=== PATIENT | female | born 1990 | race Caucasian/White ===

== ENCOUNTER 2016-06-23 15:10 | Emergency (ER) | payer OTHER ==
[~2016-06-23] VITALS: Ht 162.6 cm; Wt 107.6 kg
[~2016-06-23 15:10] MED LIST: ALBUTEROL2.5 MG/3 M IH; ALLEGRA ALLERG180 MG PO; AMARYL2 MG PO; AMOXICILLI400 MG/5 M PO; ATORVASTATIN CA20 MG PO; BACLOFEN10 MG PO; BENTYL10 MG PO; BENTYL20 MG PO; BUSPIRONE HCL30 MG PO; CEFDINIR300 MG PO; CIPRO500 MG PO; CIPROFLOXACIN250 MG PO; CLARITIN10 M3 PO; CLINDAMYCIN HC300 MG PO; DEPO-PROVER150 MG/ML IM; DESYREL 150 MG150 MG PO; DESYREL100 MG PO; DESYREL300 MG PO; DICLOFENAC SODI75 MG PO; ELAVIL50 MG PO; ERGOCALCIF50000 UNIT PO; FEXOFENADINE H180 MG PO; FLAGYL500 MG PO; FLINTSTONES M300 MCG PO; FLUCONAZOLE150 MG PO; FOLIC ACID1 MG PO; GEMFIBROZIL600 MG PO; GLIPIZIDE5 MG PO; GLUCOPHAGE XR,500 MG PO; GLUCOPHAGE500 MG PO; GLUMETZA500 M1 PO; GLYBURIDE1.25 MG PO; GUAIFENESIN WI120 ML PO; HYDROCODON-ACE1 EAC7 PO; HYDROXYZINE HCL25 MG PO; INDERAL10 MG PO; KEFLEX500 MG PO; KENALOG,ARISTOC15 G2 TP; LAMICTAL ODT50 MG PO; LAMICTAL100 MG PO; LANTUS 10100 UNITS/ SC; LATUDA20 MG PO; LORTAB 5-325 M1 EACH PO; LYRICA225 MG PO; LYRICA75 MG PO; MACROBID100 MG PO; MACRODANTIN100 MG PO; METFORMIN HCL500 M1 PO; METOPROLOL TART25 MG PO; MILK OF MAGN PO; MOTRIN600 MG PO; MOTRIN800 MG PO; MULTIVITAMINS; NAPROSYN500 MG PO; NORCO 7.5/321 TABLET PO; NOVOLOG 10100 UNITS/ SC; PERCOCET 5/31 TABLET PO; PREDNISONE20 MG PO; PRENATAL PLUS1 EAC3 PO; PROVERA,CYCRIN10 MG PO; RANITIDINE HCL300 MG PO; REMERON30 M2 PO; REQUIP2 MG PO; ROPINIROLE HCL2 MG PO; SEA-OMEGA 30 C1 EACH PO; TAMIFLU75 MG PO; THIAMINE HCL500 MG PO; TORADOL10 MG PO; TRAMADOL HCL50 MG PO; TRAZODONE HCL150 MG PO; TRILEPTAL300 MG PO; TRILEPTAL600 MG PO; ULTRAM50 MG PO; VICODIN 5-3001 EACH PO; VITAMIN B-12250 MCG PO; VITAMIN D31000 UNI1 PO; VITAMIN D31000 UNIT PO; VOLTAREN75 MG PO; WELLBUTRIN XL150 MG PO; ZANTAC150 MG PO; ZANTAC300 MG PO; ZOFRAN ODT4 MG PO; ZOFRAN4 MG PO; [UNRECOGNIZED DRUG - OTHER] TP; vitamin d3 PO
[2016-06-23] MEDS ORDERED: ATARAX,VISTARIL50 MG PO (16:07)
[2016-06-23] MEDS ORDERED: PREDNISONE10 MG PO (16:07)
[2016-06-23 16:09] VITALS: BP 116/91
== END 2016-06-23 16:15 | disposition home or self-care (01) ==
LOC: EME 15:10
DX: T78.40XA Allergy, unspecified, initial encounter (principal); L29.9 Pruritus, unspecified
CPT/HCPCS: 99281; 99284

== ENCOUNTER 2016-07-11 19:33 | Emergency (ER) | payer OTHER ==
[~2016-07-11] VITALS: Ht 160 cm; Wt 109.3 kg
[~2016-07-11 19:33] MED LIST changes: +ATARAX,VISTARIL50 MG PO; +PREDNISONE10 MG PO
[2016-07-11 20:34] LABS: HEMATOCRIT 43.1 % (36.0-46.0); MCH 29.3 PG (29.0-34.0); MCV 83.5 FL (83-99); MEAN PLAT.VOLUME 9.2 uM^3 (9.5-12.4); PLATELET COUNT 377 K/uL (156-360); RBC DIS.WIDTH-CV 13.7 % (11.8-14.6); RBC DIS.WIDTH-SD 41.1 % (39-53); RED BLOOD COUNT 5.16 M/uL (3.80-5.20); WHITE BLOOD COUNT 13.3 K/uL (4.1-10.2)
[2016-07-11 20:40] LABS: CHLORIDE 102 mEq/L (99-109); POTASSIUM 3.8 mEq/L (3.7-5.4); SODIUM 137 mEq/L (136-147)
[2016-07-11 20:42] LABS: GLUCOSE 203 mg/dL (70-99)
[2016-07-11 20:44] LABS: ANION GAP 14 MEQ/L (2-14)
[2016-07-11 20:46] LABS: GFR ESTIMATE (CALCULATED) > 59 mL/min/
[2016-07-11 20:47] LABS: UREA NITROGEN (BUN) 8 mg/dL (9-23)
[2016-07-11 20:53] LABS: TROP-I INTERPRETATION NEGATIVE; TROPONIN-I < 0.01 ng/mL (0.0-0.30)
[2016-07-11 22:10] LABS: BILIRUBIN NEGATIVE; BLOOD NEGATIVE; COLOR YELLOW ((YELLOW)); GLUCOSE (STRIP) NEGATIVE; KETONES NEGATIVE; LEUKOCYTES NEGATIVE; NITRITE NEGATIVE; PROTEIN (STRIP) NEGATIVE; SPECIFIC GRAVITY 1.014 (1.000-1.030); UROBILINOGEN 0.2 MG/DL (0.2-1.0)
[2016-07-11] MEDS ORDERED: NADOLOL20 MG PO ×2 (22:10→23:29)
[2016-07-11 22:20] LABS: ADD MIUA? NO; UCUL ADDED? NO
[2016-07-11 22:40] VITALS: BP 126/80
== END 2016-07-11 22:41 | disposition home or self-care (01) ==
LOC: EME 19:33
PROVIDERS: Physician Assistant
DX: R00.0 Tachycardia, unspecified (principal); R07.9 Chest pain, unspecified; E11.65 Type 2 diabetes mellitus with hyperglycemia; Z79.4 Long term (current) use of insulin; F31.9 Bipolar disorder, unspecified; G89.29 Other chronic pain; G43.909 Migraine, unspecified, not intractable, without status migrainosus; K21.9 Gastro-esophageal reflux disease without esophagitis; E66.9 Obesity, unspecified; J45.909 Unspecified asthma, uncomplicated
CPT/HCPCS: 71020; 80048; 81003; 82010; 84484; 85027; 93005; 99281; 99284

== ENCOUNTER 2016-08-22 18:16 | Emergency (ER) | payer OTHER ==
[~2016-08-22] VITALS: Ht 162.6 cm; Wt 108.0 kg
[~2016-08-22 18:16] MED LIST changes: +NADOLOL20 MG PO
[2016-08-22 21:00] LABS: HEMATOCRIT 45.6 % (36.0-46.0); MCH 29.7 PG (29.0-34.0); MCHC 35.1 G/DL (30.0-36.0); MCV 84.8 FL (83-99); MEAN PLAT.VOLUME 9.8 uM^3 (9.5-12.4); PLATELET COUNT 338 K/uL (156-360); RBC DIS.WIDTH-CV 14.4 % (11.8-14.6); RBC DIS.WIDTH-SD 43.8 % (39-53); RED BLOOD COUNT 5.38 M/uL (3.80-5.20); WHITE BLOOD COUNT 13.6 K/uL (4.1-10.2)
[2016-08-22 21:15] LABS: CHLORIDE 103 mEq/L (99-109); POTASSIUM 4.2 mEq/L (3.7-5.4); SODIUM 134 mEq/L (136-147)
[2016-08-22 21:17] LABS: GLUCOSE 180 mg/dL (70-99)
[2016-08-22 21:18] LABS: ANION GAP 9 MEQ/L (2-14)
[2016-08-22 21:20] LABS: SERUM ETHYL ALCOHOL < 10 mg/dL
[2016-08-22 21:21] LABS: GFR ESTIMATE (CALCULATED) > 59 mL/min/
[2016-08-22 21:22] LABS: UREA NITROGEN (BUN) 8 mg/dL (9-23)
[2016-08-22 21:30] LABS: QUANTITATIVE HCG < 4.0 MIU/ML
[2016-08-22 21:37] LABS: ADD MEDTOX COMMENT Y; AMPHETAMINE NEGATIVE (500 ng/mL); BARBITURATES NEGATIVE (200 ng/mL); BENZODIAZEPINES PRESUMPTIVE POSITIVE (150 ng/mL); COCAINE NEGATIVE (150 ng/mL); INTERNAL CONTROLS VALID? YES; METHADONE NEGATIVE (200 ng/mL); METHAMPHETAMINE NEGATIVE (500 ng/mL); OPIATES (MORPHINE) NEGATIVE (100 ng/mL); OXYCODONE NEGATIVE (100 ng/mL); PHENCYCLIDINE NEGATIVE (25 ng/mL); PROPOXYPHENE NEGATIVE (300 ng/mL); THC CANNABINOIDS NEGATIVE (50 ng/mL); TRICYCLIC ANTIDEPRESSANTS NEGATIVE (300 ng/mL)
[2016-08-22 22:55] LABS: BENZODIAZEPINES QUANT VALUE 0 NG/ML; BENZODIAZEPINES, URINE SCREEN Negative (200 ng/mL)
[2016-08-22 23:13] VITALS: BP 126/89
== END 2016-08-22 23:15 | disposition home or self-care (01) ==
LOC: EME 18:16
DX: F32.9 Major depressive disorder, single episode, unspecified (principal); F60.9 Personality disorder, unspecified; J45.909 Unspecified asthma, uncomplicated; F31.9 Bipolar disorder, unspecified; E11.9 Type 2 diabetes mellitus without complications; K21.9 Gastro-esophageal reflux disease without esophagitis; Z79.4 Long term (current) use of insulin
CPT/HCPCS: 80048; 84702; 84999; 85027; 90839; 99281; 99285; G0480

== ENCOUNTER 2016-10-09 16:50 | Emergency (ER) | payer OTHER ==
[~2016-10-09] VITALS: Ht 162.6 cm; Wt 107.2 kg
[2016-10-09] MEDS ORDERED: PERCOCET 5/31 TABLET PO (20:41)
[2016-10-09 21:24] VITALS: BP 125/88
== END 2016-10-09 21:25 | disposition home or self-care (01) ==
LOC: EME 16:50
PROC: 2W3RX1Z Immobilization of Left Lower Leg using Splint (ICD-10-PCS; principal; 2016-10-09)
DX: S92.325A Nondisplaced fracture of second metatarsal bone, left foot, initial encounter for closed fracture (principal); S92.335A Nondisplaced fracture of third metatarsal bone, left foot, initial encounter for closed fracture; S92.345A Nondisplaced fracture of fourth metatarsal bone, left foot, initial encounter for closed fracture; S92.355A Nondisplaced fracture of fifth metatarsal bone, left foot, initial encounter for closed fracture; W01.198A Fall on same level from slipping, tripping and stumbling with subsequent striking against other object, initial encounter
CPT/HCPCS: 73630; 99281; 99284

== ENCOUNTER 2016-11-06 03:32 | Emergency (ER) | payer OTHER ==
[~2016-11-06] VITALS: Ht 162.6 cm; Wt 109.5 kg
[2016-11-06 03:52] LABS: POINT-OF-CARE METER ID UU13113778
[2016-11-06 04:04] LABS: BASOPHIL COUNT 0.1 K/uL (0-0.1); EOSINOPHIL (%) 2.5 % (0-5); EOSINOPHIL COUNT 0.2 K/uL (0-0.3); HEMATOCRIT 42.4 % (36.0-46.0); IMMATURE GRANULOCYTE (%) 0.6 % (0.0-0.7); IMMATURE GRANULOCYTE COUNT 0.1 K/uL; INSTRUMENT ABS NEUTROPHIL CT 4.2 K/uL; LYMPHOCYTE COUNT 2.5 K/uL (1.0-2.8); MCH 30.5 PG (29.0-34.0); MCHC 35.1 G/DL (30.0-36.0); MCV 86.9 FL (83-99); MEAN PLAT.VOLUME 9.8 uM^3 (9.5-12.4); MONOCYTE (%) 11.3 % (3-12); MONOCYTE COUNT 0.9 K/uL (0-0.8); NEUTROPHIL (%) 53.6 % (45-76); NEUTROPHIL COUNT 4.2 K/uL (1.8-6.4); PLATELET COUNT 324 K/uL (156-360); RBC DIS.WIDTH-CV 14.3 % (11.8-14.6); RBC DIS.WIDTH-SD 44.6 % (39-53); RED BLOOD COUNT 4.88 M/uL (3.80-5.20); WHITE BLOOD COUNT 7.9 K/uL (4.1-10.2)
[2016-11-06 04:15] LABS: CHLORIDE 103 mEq/L (99-109); SODIUM 134 mEq/L (136-147)
[2016-11-06 04:18] LABS: GLUCOSE 432 mg/dL (70-99)
[2016-11-06 04:19] LABS: ANION GAP 17 MEQ/L (2-14); TOTAL BILIRUBIN 0.3 mg/dL (0.0-1.0)
[2016-11-06 04:21] LABS: ALKALINE PHOSPHATASE 71 IU/L (3-129); GFR ESTIMATE (CALCULATED) > 59 mL/min/
[2016-11-06 04:22] LABS: UREA NITROGEN (BUN) 6 mg/dL (9-23)
[2016-11-06 04:23] LABS: DIRECT BILIRUBIN < 0.1 mg/dL (0.0-0.3)
[2016-11-06 04:25] LABS: LIPASE 26 U/L (1.0-51.0)
[2016-11-06 04:37] LABS: ADD MIUA? NO; BILIRUBIN NEGATIVE; BLOOD NEGATIVE; COLOR STRAW ((YELLOW)); GLUCOSE (STRIP) >=500; KETONES NEGATIVE; LEUKOCYTES NEGATIVE; NITRITE NEGATIVE; PROTEIN (STRIP) NEGATIVE; SPECIFIC GRAVITY 1.032 (1.000-1.030); UCUL ADDED? NO; UROBILINOGEN 0.2 MG/DL (0.2-1.0)
[2016-11-06 04:50] VITALS: BP 137/107
[2016-11-06 04:51] LABS: POINT-OF-CARE METER ID UU13113702
[2016-11-06 04:56] LABS: ADD MEDTOX COMMENT Y; AMPHETAMINE NEGATIVE (500 ng/mL); BARBITURATES NEGATIVE (200 ng/mL); BENZODIAZEPINES NEGATIVE (150 ng/mL); COCAINE NEGATIVE (150 ng/mL); INTERNAL CONTROLS VALID? YES; METHADONE NEGATIVE (200 ng/mL); METHAMPHETAMINE NEGATIVE (500 ng/mL); OPIATES (MORPHINE) PRESUMPTIVE POSITIVE (100 ng/mL); OXYCODONE PRESUMPTIVE POSITIVE (100 ng/mL); PHENCYCLIDINE NEGATIVE (25 ng/mL); PROPOXYPHENE NEGATIVE (300 ng/mL); THC CANNABINOIDS NEGATIVE (50 ng/mL); TRICYCLIC ANTIDEPRESSANTS NEGATIVE (300 ng/mL)
== END 2016-11-06 04:52 | disposition home or self-care (01) ==
LOC: EME 03:32
PROVIDERS: Emergency Medicine
DX: E11.65 Type 2 diabetes mellitus with hyperglycemia (principal); Z79.4 Long term (current) use of insulin; Z96.41 Presence of insulin pump (external) (internal); J45.909 Unspecified asthma, uncomplicated; E66.9 Obesity, unspecified; Z68.41 Body mass index [BMI] 40.0-44.9, adult; Z90.49 Acquired absence of other specified parts of digestive tract
CPT/HCPCS: 80048; 80076; 81003; 82803; 82948; 83690; 84999; 85025; 99281; 99284; J7030

== ENCOUNTER 2016-12-07 23:13 | Emergency (ER) | payer OTHER ==
[~2016-12-07] VITALS: Ht 154.9 cm; Wt 108.9 kg
[2016-12-07 23:40] LABS: HEMATOCRIT 47.5 % (36.0-46.0); MCHC 34.9 G/DL (30.0-36.0); MCV 85.7 FL (83-99); MEAN PLAT.VOLUME 9.3 uM^3 (9.5-12.4); PLATELET COUNT 364 K/uL (156-360); RBC DIS.WIDTH-CV 13.8 % (11.8-14.6); RBC DIS.WIDTH-SD 42.6 % (39-53); RED BLOOD COUNT 5.54 M/uL (3.80-5.20); WHITE BLOOD COUNT 13.6 K/uL (4.1-10.2)
[2016-12-07 23:49] LABS: CHLORIDE 100 mEq/L (99-109); SODIUM 134 mEq/L (136-147)
[2016-12-07 23:51] LABS: GLUCOSE 309 mg/dL (70-99)
[2016-12-07 23:52] LABS: ANION GAP 15 MEQ/L (2-14)
[2016-12-07 23:55] LABS: GFR ESTIMATE (CALCULATED) > 59 mL/min/; UREA NITROGEN (BUN) 5 mg/dL (9-23)
[2016-12-08] MEDS ORDERED: SINGULAIR10 MG PO (00:33)
[2016-12-08] MEDS ORDERED: FLONASE16 G1 BOTH NARES (00:33)
[2016-12-08 01:02] VITALS: BP 135/90
== END 2016-12-08 01:04 | disposition home or self-care (01) ==
LOC: EME 23:13
DX: J30.2 Other seasonal allergic rhinitis (principal); E11.9 Type 2 diabetes mellitus without complications; Z79.4 Long term (current) use of insulin; E66.9 Obesity, unspecified; Z68.42 Body mass index [BMI] 45.0-49.9, adult; Z88.1 Allergy status to other antibiotic agents
CPT/HCPCS: 71020; 80048; 85027; 99281; 99283

== ENCOUNTER 2016-12-15 15:36 | Emergency (ER) | payer OTHER ==
[~2016-12-15] VITALS: Ht 162.6 cm; Wt 109.8 kg
[~2016-12-15 15:36] MED LIST changes: +FLONASE16 G1 BOTH NARES; +SINGULAIR10 MG PO
[2016-12-15 16:10] LABS: HEMATOCRIT 44.8 % (36.0-46.0); MCH 29.9 PG (29.0-34.0); MCHC 35.5 G/DL (30.0-36.0); MCV 84.4 FL (83-99); MEAN PLAT.VOLUME 9.2 uM^3 (9.5-12.4); PLATELET COUNT 331 K/uL (156-360); RBC DIS.WIDTH-CV 13.2 % (11.8-14.6); RBC DIS.WIDTH-SD 40.5 % (39-53); RED BLOOD COUNT 5.31 M/uL (3.80-5.20); WHITE BLOOD COUNT 11.7 K/uL (4.1-10.2)
[2016-12-15 16:21] LABS: CHLORIDE 98 mEq/L (99-109); SODIUM 134 mEq/L (136-147)
[2016-12-15 16:23] LABS: GLUCOSE 227 mg/dL (70-99)
[2016-12-15 16:24] LABS: ANION GAP 14 MEQ/L (2-14)
[2016-12-15 16:25] LABS: TOTAL BILIRUBIN 0.4 mg/dL (0.0-1.0)
[2016-12-15 16:26] LABS: ALKALINE PHOSPHATASE 80 IU/L (3-129)
[2016-12-15 16:27] LABS: GFR ESTIMATE (CALCULATED) > 59 mL/min/
[2016-12-15 16:28] LABS: UREA NITROGEN (BUN) 6 mg/dL (9-23)
[2016-12-15 16:30] LABS: LIPASE 15 U/L (1.0-51.0)
[2016-12-15 16:36] LABS: QUANTITATIVE HCG < 4.0 MIU/ML
[2016-12-15 16:38] LABS: ADD MIUA? YES; BILIRUBIN NEGATIVE; BLOOD LARGE; COLOR YELLOW ((YELLOW)); GLUCOSE (STRIP) 150; KETONES NEGATIVE; LEUKOCYTES NEGATIVE; NITRITE NEGATIVE; PROTEIN (STRIP) 100; SPECIFIC GRAVITY 1.021 (1.000-1.030); UROBILINOGEN 0.2 MG/DL (0.2-1.0)
[2016-12-15 17:01] LABS: BACTERIA NONE SEEN /HPF; CASTS NONE SEEN /LPF; CRYSTALS NONE SEEN; EPITHELIAL CELLS RARE /HPF; MUCUS NONE SEEN /LPF; RED BLOOD CELLS TNTC /HPF (0-5); UCUL ADDED? YES; WHITE BLOOD CELLS RARE /HPF (0-5)
[2016-12-15] MEDS ORDERED: NAPROXEN500 MG PO (18:57)
[2016-12-15 19:06] VITALS: BP 139/116
== END 2016-12-15 19:07 | disposition home or self-care (01) ==
LOC: EME 15:36
PROVIDERS: Physician Assistant Medical
DX: R10.2 Pelvic and perineal pain (principal); J45.909 Unspecified asthma, uncomplicated; E11.9 Type 2 diabetes mellitus without complications; K21.9 Gastro-esophageal reflux disease without esophagitis; E66.9 Obesity, unspecified; Z68.41 Body mass index [BMI] 40.0-44.9, adult; F90.9 Attention-deficit hyperactivity disorder, unspecified type; F32.9 Major depressive disorder, single episode, unspecified; Z79.4 Long term (current) use of insulin; Z90.49 Acquired absence of other specified parts of digestive tract; Z88.0 Allergy status to penicillin
CPT/HCPCS: 76856; 80053; 81003; 83690; 84702; 85027; 87086; 99281; 99283; J1885

== ENCOUNTER 2017-01-03 18:18 | Emergency (ER) | payer OTHER ==
[~2017-01-03] VITALS: Ht 162.6 cm; Wt 111.0 kg
[~2017-01-03 18:18] MED LIST changes: +NAPROXEN500 MG PO
[2017-01-03] MEDS ORDERED: NAPROXEN500 MG PO (21:17)
[2017-01-03 21:29] VITALS: BP 142/88
== END 2017-01-03 21:31 | disposition home or self-care (01) ==
LOC: EME 18:18
DX: S93.602A Unspecified sprain of left foot, initial encounter (principal); W10.9XXA Fall (on) (from) unspecified stairs and steps, initial encounter; E11.9 Type 2 diabetes mellitus without complications; Z79.4 Long term (current) use of insulin; J45.909 Unspecified asthma, uncomplicated; E66.9 Obesity, unspecified; Z68.41 Body mass index [BMI] 40.0-44.9, adult
CPT/HCPCS: 73630; 73700; 99281; 99284; J1885

== ENCOUNTER 2017-01-24 11:11 | Emergency (ER) | payer OTHER ==
[~2017-01-24] VITALS: Ht 162.6 cm; Wt 113.2 kg
[2017-01-24 12:16] LABS: HEMATOCRIT 43.6 % (36.0-46.0); MCH 29.9 PG (29.0-34.0); MCHC 35.1 G/DL (30.0-36.0); MCV 85.2 FL (83-99); MEAN PLAT.VOLUME 9.4 uM^3 (9.5-12.4); PLATELET COUNT 314 K/uL (156-360); RBC DIS.WIDTH-CV 13.6 % (11.8-14.6); RBC DIS.WIDTH-SD 42.4 % (39-53); RED BLOOD COUNT 5.12 M/uL (3.80-5.20); WHITE BLOOD COUNT 9.9 K/uL (4.1-10.2)
[2017-01-24 12:28] LABS: CHLORIDE 101 mEq/L (99-109); POTASSIUM 3.9 mEq/L (3.7-5.4); SODIUM 136 mEq/L (136-147)
[2017-01-24 12:29] LABS: GLUCOSE 161 mg/dL (70-99)
[2017-01-24 12:31] LABS: ANION GAP 13 MEQ/L (2-14)
[2017-01-24 12:33] LABS: GFR ESTIMATE (CALCULATED) > 59 mL/min/
[2017-01-24 12:34] LABS: UREA NITROGEN (BUN) 5 mg/dL (9-23)
[2017-01-24 12:38] LABS: TROP-I INTERPRETATION NEGATIVE; TROPONIN-I < 0.01 ng/mL (0.0-0.30)
[2017-01-24 13:53] VITALS: BP 149/94
== END 2017-01-24 13:53 | disposition home or self-care (01) ==
LOC: EME 11:11
DX: R07.9 Chest pain, unspecified (principal); E11.9 Type 2 diabetes mellitus without complications; Z79.4 Long term (current) use of insulin; J45.909 Unspecified asthma, uncomplicated; E66.9 Obesity, unspecified; Z68.41 Body mass index [BMI] 40.0-44.9, adult
CPT/HCPCS: 71020; 80048; 84484; 85027; 93005; 99281; 99283; J1885

== ENCOUNTER 2017-02-06 18:38 | Emergency (ER) | payer OTHER ==
[~2017-02-06] VITALS: Ht 162.6 cm; Wt 111.5 kg
[2017-02-06 19:14] LABS: MCHC 35.5 G/DL (30.0-36.0); MCV 84.4 FL (83-99); MEAN PLAT.VOLUME 9.6 uM^3 (9.5-12.4); PLATELET COUNT 355 K/uL (156-360); RBC DIS.WIDTH-CV 13.7 % (11.8-14.6); RED BLOOD COUNT 5.57 M/uL (3.80-5.20); WHITE BLOOD COUNT 12.2 K/uL (4.1-10.2)
[2017-02-06 19:23] LABS: CHLORIDE 97 mEq/L (99-109); POTASSIUM 3.7 mEq/L (3.7-5.4); SODIUM 136 mEq/L (136-147)
[2017-02-06 19:25] LABS: GLUCOSE 381 mg/dL (70-99)
[2017-02-06 19:26] LABS: ANION GAP 17 MEQ/L (2-14)
[2017-02-06 19:27] LABS: TOTAL BILIRUBIN 0.4 mg/dL (0.0-1.0)
[2017-02-06 19:29] LABS: ALKALINE PHOSPHATASE 104 IU/L (3-129); GFR ESTIMATE (CALCULATED) > 59 mL/min/
[2017-02-06 19:30] LABS: UREA NITROGEN (BUN) 7 mg/dL (9-23)
[2017-02-06 19:36] LABS: ADD MIUA? YES; BILIRUBIN NEGATIVE; BLOOD LARGE; GLUCOSE (STRIP) >=500; KETONES 5; LEUKOCYTES NEGATIVE; NITRITE NEGATIVE; PROTEIN (STRIP) >=500; SPECIFIC GRAVITY 1.033 (1.000-1.030); UROBILINOGEN 0.2 MG/DL (0.2-1.0)
[2017-02-06 19:37] LABS: QUANTITATIVE HCG < 4.0 MIU/ML
[2017-02-06 19:38] LABS: COLOR LT.RED ((YELLOW))
[2017-02-06 19:53] LABS: RED BLOOD CELLS TNTC /HPF (0-5)
[2017-02-06 19:54] LABS: EPITHELIAL CELLS 1+ /HPF; WHITE BLOOD CELLS 0-5 /HPF (0-5)
[2017-02-06 19:55] LABS: BACTERIA NONE SEEN /HPF; MUCUS NONE SEEN /LPF; UCUL ADDED? YES
[2017-02-06 19:56] LABS: CASTS PRESENT /LPF; COARSE GRANULAR CASTS RARE /LPF; CRYSTALS NONE SEEN
[2017-02-06 21:52] LABS: POINT-OF-CARE METER ID UU13113747
[2017-02-06 22:37] VITALS: BP 134/82
[2017-02-07 07:36] LABS: Estimated Average Glucose 180 mg/dL (70-123); HEMOGLOBIN A1c (GLYCOHEMOGLOB) 7.9 % HGB (Below 5.7)
== END 2017-02-06 22:38 | disposition home or self-care (01) ==
LOC: EME 18:38
PROVIDERS: Physician Assistant
DX: E11.65 Type 2 diabetes mellitus with hyperglycemia (principal); F41.9 Anxiety disorder, unspecified; N93.8 Other specified abnormal uterine and vaginal bleeding; Z91.14 Patient's other noncompliance with medication regimen; N94.6 Dysmenorrhea, unspecified; J45.909 Unspecified asthma, uncomplicated; K21.9 Gastro-esophageal reflux disease without esophagitis; F32.9 Major depressive disorder, single episode, unspecified; E66.9 Obesity, unspecified; Z68.41 Body mass index [BMI] 40.0-44.9, adult; F90.9 Attention-deficit hyperactivity disorder, unspecified type; Z88.0 Allergy status to penicillin
CPT/HCPCS: 80053; 81003; 82948; 83036; 84702; 85027; 87086; 99281; 99284; J2060; J7030

== ENCOUNTER 2017-06-14 01:46 | Emergency (ER) | payer OTHER ==
[~2017-06-14] VITALS: Ht 162.6 cm; Wt 110.4 kg
[2017-06-14] MEDS ORDERED: NORCO 5/3251 TABLET PO (03:12)
[2017-06-14 03:25] VITALS: BP 147/107
== END 2017-06-14 03:26 | disposition home or self-care (01) ==
LOC: EME 01:46
DX: S93.602A Unspecified sprain of left foot, initial encounter (principal); S93.402A Sprain of unspecified ligament of left ankle, initial encounter; X50.1XXA Overexertion from prolonged static or awkward postures, initial encounter; Z88.1 Allergy status to other antibiotic agents; Z88.2 Allergy status to sulfonamides; Z88.8 Allergy status to other drugs, medicaments and biological substances
CPT/HCPCS: 73610; 73630; 99281; 99283

== ENCOUNTER 2017-10-07 16:36 | Emergency (ER) | payer OTHER ==
[~2017-10-07] VITALS: Ht 162.6 cm; Wt 107.8 kg
[~2017-10-07 16:36] MED LIST changes: +LEVEMIR FL100 UNIT/1 SC; +NORCO 5/3251 TABLET PO; +NUCYNTA50 MG PO
[2017-10-07 17:33] LABS: ALBUMIN 4.1 g/dL (3.2-4.8); CHLORIDE 100 mEq/L (99-109); POTASSIUM 4.5 mEq/L (3.7-5.4); SODIUM 134 mEq/L (136-147)
[2017-10-07 17:36] LABS: GLUCOSE 382 mg/dL (70-99); TOTAL PROTEIN 8.2 g/dL (6.4-8.3)
[2017-10-07 17:37] LABS: TOTAL BILIRUBIN 0.5 mg/dL (0.0-1.0)
[2017-10-07 17:39] LABS: ALKALINE PHOSPHATASE 100 IU/L (3-129); CREATININE 0.7 mg/dL (0.6-1.3); GFR ESTIMATE (CALCULATED) > 59 mL/min/
[2017-10-07 17:40] LABS: UREA NITROGEN (BUN) 6 mg/dL (9-23)
[2017-10-07 17:41] LABS: AST (GOT) 25 IU/L (2-34)
[2017-10-07 17:42] LABS: ALT (GPT) 23 IU/L (3-49)
[2017-10-07 17:43] LABS: HEMATOCRIT 48.7 % (36.0-46.0); HEMOGLOBIN 17.5 G/DL (11.9-15.5); LIPASE 33 U/L (1.0-51.0); MCH 29.8 PG (29.0-34.0); MCHC 35.9 G/DL (30.0-36.0); RBC DIS.WIDTH-CV 14.6 % (11.8-14.6); RED BLOOD COUNT 5.87 M/uL (3.80-5.20); WHITE BLOOD COUNT 12.1 K/uL (4.1-10.2)
[2017-10-07 17:51] LABS: QUANTITATIVE HCG < 4.0 MIU/ML
[2017-10-07 18:25] LABS: APPEARANCE CLEAR ((CLEAR)); BILIRUBIN NEGATIVE; BLOOD NEGATIVE; COLOR STRAW ((YELLOW)); GLUCOSE (STRIP) >=500; KETONES 5; LEUKOCYTES NEGATIVE; NITRITE NEGATIVE; PROTEIN (STRIP) NEGATIVE; SPECIFIC GRAVITY 1.031 (1.000-1.030); UCUL ADDED? NO; UROBILINOGEN 0.2 MG/DL (0.2-1.0)
[2017-10-07 18:27] LABS: IMM.PLATELET FRACTION 17.4 (1-7); PLATELET COUNT 89 K/uL (156-360)
[2017-10-07] MEDS ORDERED: ZOFRAN ODT4 MG PO (22:19)
[2017-10-07] MEDS ORDERED: BENTYL10 MG PO (22:19)
[2017-10-07 22:46] VITALS: BP 124/75
== END 2017-10-07 23:03 | disposition home or self-care (01) ==
LOC: EME 16:36
DX: R10.30 Lower abdominal pain, unspecified (principal); E11.65 Type 2 diabetes mellitus with hyperglycemia; K92.1 Melena; Z79.4 Long term (current) use of insulin; J45.909 Unspecified asthma, uncomplicated; K21.9 Gastro-esophageal reflux disease without esophagitis; Z90.49 Acquired absence of other specified parts of digestive tract; Z88.2 Allergy status to sulfonamides; Z88.1 Allergy status to other antibiotic agents; Z88.0 Allergy status to penicillin
CPT/HCPCS: 74177; 80053; 81003; 82948; 83690; 84702; 85027; 99281; 99285; J2405; J3010; J7030

== ENCOUNTER 2017-10-23 21:37 | Emergency (ER) | payer OTHER ==
[~2017-10-23] VITALS: Ht 162.6 cm; Wt 107.7 kg
[2017-10-24 01:17] VITALS: BP 148/104
== END 2017-10-24 01:18 | disposition home or self-care (01) ==
LOC: EME 21:37
DX: B00.1 Herpesviral vesicular dermatitis (principal); J45.909 Unspecified asthma, uncomplicated; E11.9 Type 2 diabetes mellitus without complications; Z79.4 Long term (current) use of insulin; Z88.0 Allergy status to penicillin; Z88.1 Allergy status to other antibiotic agents; Z88.2 Allergy status to sulfonamides
CPT/HCPCS: 99281; 99285

== ENCOUNTER 2017-10-28 03:33 | Emergency (ER) | payer OTHER ==
[~2017-10-28] VITALS: Ht 162.6 cm; Wt 111.4 kg
[2017-10-28 04:57] LABS: APPEARANCE CLEAR ((CLEAR)); BILIRUBIN NEGATIVE; BLOOD NEGATIVE; COLOR YELLOW ((YELLOW)); GLUCOSE (STRIP) >=500; KETONES 5; LEUKOCYTES NEGATIVE; NITRITE NEGATIVE; PROTEIN (STRIP) NEGATIVE; SPECIFIC GRAVITY 1.031 (1.000-1.030); UCUL ADDED? NO; UROBILINOGEN 0.2 MG/DL (0.2-1.0)
[2017-10-28 05:12] LABS: HEMATOCRIT 45.3 % (36.0-46.0); HEMOGLOBIN 16.3 G/DL (11.9-15.5); MCH 30.5 PG (29.0-34.0); MCV 84.7 FL (83-99); RBC DIS.WIDTH-CV 14.6 % (11.8-14.6); RBC DIS.WIDTH-SD 44.7 % (39-53); RED BLOOD COUNT 5.35 M/uL (3.80-5.20); WHITE BLOOD COUNT 11.3 K/uL (4.1-10.2)
[2017-10-28 05:14] LABS: PLATELET COUNT 313 K/uL (156-360)
[2017-10-28 05:14] LABS: ALBUMIN 4.2 g/dL (3.2-4.8); CHLORIDE 101 mEq/L (99-109); SODIUM 137 mEq/L (136-147)
[2017-10-28 05:16] LABS: GLUCOSE 247 mg/dL (70-99); TOTAL PROTEIN 7.5 g/dL (6.4-8.3)
[2017-10-28 05:18] LABS: TOTAL BILIRUBIN 0.7 mg/dL (0.0-1.0)
[2017-10-28 05:20] LABS: ALKALINE PHOSPHATASE 91 IU/L (3-129); CREATININE 0.6 mg/dL (0.6-1.3); GFR ESTIMATE (CALCULATED) > 59 mL/min/
[2017-10-28 05:21] LABS: UREA NITROGEN (BUN) 5 mg/dL (9-23)
[2017-10-28 05:22] LABS: AST (GOT) 22 IU/L (2-34)
[2017-10-28 05:23] LABS: ALT (GPT) 38 IU/L (3-49); LIPASE 15 U/L (1.0-51.0)
[2017-10-28] MEDS ORDERED: MIRALAX17 GM PO (07:03)
[2017-10-28 07:18] VITALS: BP 105/87
== END 2017-10-28 07:20 | disposition home or self-care (01) ==
LOC: EME → EDBD 03:33 → EME 03:33
PROVIDERS: Emergency Medicine
DX: K59.00 Constipation, unspecified (principal); K76.0 Fatty (change of) liver, not elsewhere classified; E11.9 Type 2 diabetes mellitus without complications; K21.9 Gastro-esophageal reflux disease without esophagitis; J45.909 Unspecified asthma, uncomplicated; F90.9 Attention-deficit hyperactivity disorder, unspecified type; F31.9 Bipolar disorder, unspecified; Z79.4 Long term (current) use of insulin; Z79.891 Long term (current) use of opiate analgesic; Z87.42 Personal history of other diseases of the female genital tract; Z90.49 Acquired absence of other specified parts of digestive tract; Z88.0 Allergy status to penicillin; Z88.2 Allergy status to sulfonamides; Z88.1 Allergy status to other antibiotic agents; Z91.048 Other nonmedicinal substance allergy status
CPT/HCPCS: 74177; 76856; 80053; 81003; 81025; 83690; 85027; 99281; 99284; J2270; J2405